=== PATIENT | female | born 1995 | race Caucasian/White ===

== ENCOUNTER 2017-06-18 14:00 | Emergency (ER) | payer OTHER ==
--- NOTE | 2017-06-18 14:04 | EDPHY ---
H & P Time Seen by Provider: 06/18/17 14:04 HPI/ROS: CHIEF COMPLAINT: [ ] HISTORY OF PRESENT ILLNESS: [Need 4: Location, Duration, Severity, Quality, Context, Timing Modifying Factors, Associated S&S] REVIEW OF SYSTEMS: A comprehensive 10 point review of systems is otherwise negative aside from elements mentioned in the history of present illness. Source: Patient Exam Limitations: No limitations - Medical/Surgical History Hx Asthma: No Hx Chronic Respiratory Disease: No Hx Diabetes: No Hx Cardiac Disease: No Hx Renal Disease: No Hx Cirrhosis: No Hx Alcoholism: No Hx HIV/AIDS: No Hx Splenectomy or Spleen Trauma: No Other PMH: MIGRAINES, SZ - Social History Smoking Status: Never smoked - Physical Exam Exam: General Appearance: [Alert, no distress] Head: [Atraumatic] Eyes: [Pupils equal, round, reactive] ENT, Mouth: [No hemotympanum, no oral trauma] Neck: [Nontender, trachea midline] Respiratory: [No chest wall tender, subcutaneous air, lungs clear bilaterally] Cardiovascular: [Regular rate and rhythm] Abdomen: [Abdomen is soft and nontender, pelvis stable] Skin: [No lacerations, No abrasion] Back: [No midline T/L/S pain] Extremities: [Nontender, full range of motion] Neurological: [A&Ox3, normal motor function, normal sensory exam] Allergies/Adverse Reactions: No Known Allergies Allergy (Verified 03/04/16 17:21) Home Medications: Medication Instructions Recorded NK [No Known Home Meds] 03/04/16 Departure - Departure Referrals: NONE *PRIMARY CARE P,. [Primary Care Provider] - As per Instructions
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
[2017-06-18 15:53] VITALS: BP 107/79; PULSE 93; RESP 18; TEMP 98.4; O2SAT 96
== END 2017-06-18 15:52 | disposition home or self-care (01) ==
DX: S06.0X1A Concussion with loss of consciousness of 30 minutes or less, initial encounter (principal); S16.1XXA Strain of muscle, fascia and tendon at neck level, initial encounter; V49.9XXA Car occupant (driver) (passenger) injured in unspecified traffic accident, initial encounter; Y92.89 Other specified places as the place of occurrence of the external cause; Y99.8 Other external cause status; Y93.89 Activity, other specified

== ENCOUNTER 2018-09-09 18:27 | Emergency (ER) | payer OTHER ==
[2018-09-09 18:39] VITALS: BP 117/73
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
== END 2018-09-09 19:10 | disposition home or self-care (01) ==
DX: M54.2 Cervicalgia (principal); R20.2 Paresthesia of skin; R29.898 Other symptoms and signs involving the musculoskeletal system; Z86.69 Personal history of other diseases of the nervous system and sense organs